=== PATIENT | female | born 1970 | race Caucasian/White ===

== ENCOUNTER 2016-07-07 01:30 | Emergency (ER) | payer OTHER ==
[~2016-07-07] VITALS: Ht 154.9 cm; Wt 61.2 kg
--- NOTE | ~2016-07-07 | EKG ---
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 : 1970 Requested By: Kalyan Marie Order Number: [id number] MD: Mack Chávez Measurements Intervals [place] Rate: 103 P: 28 [place]: 157 QRS: -22 QRSD: 112 T: 12 QT: 355 QTc: 465 Interpretive Statements Sinus tachycardia Poor R-wave progression Compared to ECG 04/30/2016 06:41:27 Sinus rhythm no longer present T-wave abnormality no longer present Electronically Signed On 07-07-2016 8:24:19 [employer] by Mack Chávez [email or web address] <ELECTRONICALLY SIGNED> By: Mack Chávez MD, [facility] 07/07/16 0824 3 3 Mack Chávez MD, [facility] /EPI
[~2016-07-07 01:30] MED LIST: ALBUTEROL INHAL17 GM IH; AUGMENTIN 875875 MG PO; BISOPROLOL FUM2.5 MG PO; CORTISPORIN OTI10 ML OT; CYMBALTA20 MG PO; DEPRESSION MED; FLEXERIL PO; HTN MED; IBUPROFEN 600600 M1 PO; KEFLEX500 MG PO; LEXAPRO20 MG PO; LIPITOR; LORTABELXR PO; MAALOX MAXIMUM355 ML PO; NAPROSYN500 MG PO; NORCO 5-325 TA1 EACH PO; PHENERGAN 25 MG25 M1 PO; PREDNISONE 20 M20 MG PO; PREDNISONE50 MG PO; PROMETHAZINE/C118 ML PO; PROTONIX40 MG PO; REGLAN 10 MG TA10 MG PO; ROBITUSSIN NIG118 ML PO; SYNTHROID; TESSALON PERLE100 MG PO; XANAX 0.25 MG0.25 MG PO; XANAX 0.5 MG0.5 MG PO; ZOFRAN ODT4 MG PO
[2016-07-07] MEDS ORDERED: LEVOTHYROXINE0.05 MG PO (01:55)
[2016-07-07] MEDS ORDERED: TRAZODONE HCL50 MG PO (01:55)
[2016-07-07] MEDS ORDERED: FETZIMA80 MG PO (01:56)
[2016-07-07 02:13] LABS: ANION GAP 10 mmol/L (7-16); BUN 28 mg/dL (7-18); CALCIUM 9.2 mg/dL (8.5-10.1); CHLORIDE 101 mmol/L (98-107); CO2 27 mmol/L (21-32); CREATININE 1.2 mg/dL (0.6-1.3); GLUCOSE 97 mg/dL (70-99); SODIUM 138 mmol/L (136-145)
[2016-07-07 02:20] LABS: APTT 20.8 Seconds (24.5-32.8)
[2016-07-07 02:25] LABS: ALBUMIN 4.1 g/dL (3.4-5.0); ALKALINE PHOSPHATASE 142 U/L (46-116); MAGNESIUM 1.8 mg/dL (1.8-2.4); SGOT 30 U/L (15-37); SGPT 48 U/L (30-65); TOTAL BILIRUBIN 0.8 mg/dL (<0.1-1.0); TOTAL PROTEIN 7.8 g/dL (6.4-8.2); TROPONIN-I < 0.04 ng/mL (<0.04-0.07)
[2016-07-07 02:28] LABS: CK-MB MASS 0.3 ng/mL (<0.5-3.6); NT-PRO BRAIN NAT PEPTIDE 28 pg/mL (<300)
[2016-07-07] MEDS ORDERED: NAPROSYN500 MG PO (02:43)
[2016-07-07] MEDS ORDERED: TRAMADOL 50 MG50 MG PO (02:43)
[2016-07-07] MEDS ORDERED: ROBAXIN500 MG PO (02:43)
[2016-07-07 02:58] LABS: ABSOLUTE NEUTROPHILS 2.6 thou/uL (1.4-8.2); BASOPHILS 1.4 % (0.0-2.0); EOSINOPHILS 2.7 % (0.0-3.0); HEMATOCRIT 43.5 % (37.0-47.0); LYMPHOCYTES 43.6 % (24.0-44.0); MCH 32.4 pg (26.0-34.0); MCHC 34.5 % (28.0-37.0); MCV 93.9 fL (80.0-100.0); MONOCYTES 10.8 % (1.0-8.0); POLYS 41.5 % (36.0-66.0); RBC 4.63 mil/uL (4.20-5.00); RDW 13.9 % (10.5-14.5); WBC 6.4 thou/uL (4.0-11.0)
[2016-07-07 03:08] LABS: MANUAL DIFF NO
[2016-07-07 03:43] VITALS: BP 134/92
[2016-07-07 05:05] LABS: PLATELET COUNT 218 thou/uL (150-400)
== END 2016-07-07 03:45 | disposition home or self-care (01) ==
LOC: ER 01:30
PROVIDERS: Emergency Medicine
DX: R07.89 Other chest pain (principal); M43.6 Torticollis; Z90.710 Acquired absence of both cervix and uterus; Z85.3 Personal history of malignant neoplasm of breast; Z90.49 Acquired absence of other specified parts of digestive tract; Z90.10 Acquired absence of unspecified breast and nipple

== ENCOUNTER 2016-07-13 10:08 | Emergency (ER) | payer OTHER ==
[~2016-07-13] VITALS: Ht 154.9 cm; Wt 69.0 kg
--- NOTE | ~2016-07-13 | EKG ---
[address] [place] [address] ELECTROCARDIOGRAM REPORT Name: ANDRIA YAN Room #: [facility] [id number] Admission: 07/13/16 Attend Phys: Discharge: Date of : [birth year] Report #: [id number] THIS REPORT FOR: //name// [facility] ED Test Date: 2016-07-13 Test Time: 10:17:48 Pat Name: ANDRIA YAN Department: Room: Gender: F Media Reconciliation Specialist: DANAY : 1970 Requested By: Carl Wheeler Order Number: [id number] MD: Mack Chávez Measurements Intervals [place] Rate: 94 P: 53 [place]: 169 QRS: -12 QRSD: 93 T: 37 QT: 385 QTc: 482 Interpretive Statements Sinus rhythm No significant abnormality Compared to ECG 07/07/2016 01:34:48 Sinus tachycardia no longer present Electronically Signed On 07-13-2016 13:45:08 SCOOP FILLER by Mack Chávez [email or web address] <ELECTRONICALLY SIGNED> By: Mack Chávez MD, [facility] 07/13/16 1345 1017 16 Mack Chávez MD, [facility] /EPI
[~2016-07-13 10:08] MED LIST changes: +FETZIMA80 MG PO; +LEVOTHYROXINE0.05 MG PO; +ROBAXIN500 MG PO; +TRAMADOL 50 MG50 MG PO; +TRAZODONE HCL50 MG PO
[2016-07-13] MEDS ORDERED: FETZIMA20 MG PO (10:10)
[2016-07-13] MEDS ORDERED: MICROZIDE12.5 MG PO (10:23)
[2016-07-13 12:31] LABS: ABSOLUTE NEUTROPHILS 4.8 thou/uL (1.4-8.2); BASOPHILS 0.6 % (0.0-2.0); EOSINOPHILS 0.4 % (0.0-3.0); HEMATOCRIT 46.5 % (37.0-47.0); HEMOGLOBIN 15.8 gm/dL (12.0-15.0); LYMPHOCYTES 29.6 % (24.0-44.0); MCH 31.9 pg (26.0-34.0); MCHC 34.1 % (28.0-37.0); MCV 93.6 fL (80.0-100.0); MONOCYTES 7.8 % (1.0-8.0); PLATELET COUNT 274 thou/uL (150-400); POLYS 61.6 % (36.0-66.0); RBC 4.96 mil/uL (4.20-5.00); RDW 14.1 % (10.5-14.5); WBC 7.8 thou/uL (4.0-11.0)
[2016-07-13 12:33] LABS: MANUAL DIFF NO
[2016-07-13 12:38] LABS: ANION GAP 13 mmol/L (7-16); BUN 22 mg/dL (7-18); CALCIUM 9.8 mg/dL (8.5-10.1); CHLORIDE 105 mmol/L (98-107); CO2 22 mmol/L (21-32); GLUCOSE 105 mg/dL (70-99); POTASSIUM 4.5 mmol/L (3.5-5.1); SODIUM 140 mmol/L (136-145)
[2016-07-13 12:48] LABS: ALBUMIN 4.5 g/dL (3.4-5.0); ALKALINE PHOSPHATASE 112 U/L (46-116); MAGNESIUM 1.7 mg/dL (1.8-2.4); SGOT 21 U/L (15-37); SGPT 34 U/L (30-65); TOTAL PROTEIN 8.2 g/dL (6.4-8.2); TROPONIN-I < 0.04 ng/mL (<0.04-0.07)
[2016-07-13] MEDS ORDERED: CARAFATE 1 GM TA1 G1 PO (12:59)
[2016-07-13] MEDS ORDERED: PANTOPRAZOLE SO40 M1 PO (12:59)
[2016-07-13] MEDS ORDERED: PHENERGAN 25 MG25 M1 PO (12:59)
[2016-07-13 13:22] VITALS: BP 123/82
== END 2016-07-13 13:25 | disposition home or self-care (01) ==
LOC: ER 10:08
PROVIDERS: Emergency Medicine
DX: R10.13 Epigastric pain (principal); Z90.710 Acquired absence of both cervix and uterus; Z90.13 Acquired absence of bilateral breasts and nipples; Z90.49 Acquired absence of other specified parts of digestive tract

== ENCOUNTER 2016-12-01 00:56 | Emergency (ER) | payer OTHER ==
[~2016-12-01] VITALS: Ht 154.9 cm; Wt 64.9 kg
[~2016-12-01 00:56] MED LIST changes: +CARAFATE 1 GM TA1 G1 PO; +FETZIMA20 MG PO; +MICROZIDE12.5 MG PO; +PANTOPRAZOLE SO40 M1 PO
[2016-12-01] MEDS ORDERED: BACTRIM DS TAB1 EACH PO (01:08)
[2016-12-01] MEDS ORDERED: SENOKOT-S1 TA1 PO (03:50)
[2016-12-01] MEDS ORDERED: NORCO 5-325 TA1 EACH PO (03:50)
[2016-12-01] MEDS ORDERED: ZOFRAN4 MG PO (03:50)
[2016-12-01 04:13] VITALS: BP 127/74
[2016-12-01 04:19] LABS: URINE BILIRUBIN NEGATIVE (Negative); URINE BLOOD 3+ (Negative); URINE COLOR YELLOW; URINE GLUCOSE-RANDOM* NEGATIVE (Negative); URINE KETONES NEGATIVE (Negative); URINE LEUKOCYTES-REFLEX 3+ (Negative); URINE PROTEIN (DIPSTICK) TRACE (Negative); URINE SPECIFIC GRAVITY <= 1.005 (1.003-1.035); URINE UROBILINOGEN 0.2 E.U./dl (0.2-1.0)
[2016-12-01 04:24] LABS: SQUAMOUS 4-10 Moderate /LPF (0-3)
[2016-12-01 04:25] LABS: CASTS None Seen /LPF (None Seen); CRYSTALS None Seen /LPF (None Seen); TRANSITIONAL EPITHEL CELL 0-3 Few /LPF (None Seen); URINE RBC 0-2 Rare /HPF (0-2); URINE WBC-REFLEX 6-15 Few /HPF (0-5)
== END 2016-12-01 03:51 | disposition home or self-care (01) ==
LOC: ER 00:56
PROVIDERS: Emergency Medicine
DX: N76.2 Acute vulvitis (principal); F10.99 Alcohol use, unspecified with unspecified alcohol-induced disorder; Z90.710 Acquired absence of both cervix and uterus; Z90.49 Acquired absence of other specified parts of digestive tract; Z98.890 Other specified postprocedural states; Z85.3 Personal history of malignant neoplasm of breast

== ENCOUNTER 2017-03-23 18:31 | Emergency (ER) | payer OTHER ==
[~2017-03-23] VITALS: Ht 157.5 cm; Wt 60.8 kg
[~2017-03-23 18:31] MED LIST changes: +BACTRIM DS TAB1 EACH PO; +SENOKOT-S1 TA1 PO; +ZOFRAN4 MG PO
[2017-03-23] MEDS ORDERED: PENICILLIN V P500 MG PO (19:55)
[2017-03-23] MEDS ORDERED: MOBIC7.5 MG PO (19:56)
[2017-03-23] MEDS ORDERED: NORCO 5-325 TA1 EACH PO (20:01)
[2017-03-23 20:05] VITALS: BP 122/82
== END 2017-03-23 20:07 | disposition home or self-care (01) ==
LOC: ER 18:31
DX: K08.89 Other specified disorders of teeth and supporting structures (principal); F10.99 Alcohol use, unspecified with unspecified alcohol-induced disorder; Z85.3 Personal history of malignant neoplasm of breast; Z90.710 Acquired absence of both cervix and uterus; Z90.49 Acquired absence of other specified parts of digestive tract

== ENCOUNTER 2017-05-11 06:40 | Emergency (ER) | payer OTHER ==
[~2017-05-11] VITALS: Ht 154.9 cm; Wt 61.2 kg
--- NOTE | ~2017-05-11 | EKG ---
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 Dismantler: carley : 1970 Requested By: Ralf Pina Order Number: [id number] MD: Mack Chávez Measurements Intervals [place] Rate: 72 P: 39 [place]: 167 QRS: -19 QRSD: 97 T: 12 QT: 409 QTc: 448 Interpretive Statements Sinus rhythm Borderline left axis deviation RSR' in V1 or V2, probably normal variant Compared to ECG 07/13/2016 10:17:48 RSR' in V1 or V2 now present Electronically Signed On 05-11-2017 8:24:21 GRAINING PRESS OPERATOR by Mack Chávez [email or web address] <ELECTRONICALLY SIGNED> By: Mack Chávez MD, [facility] 05/11/17 0824 1 1 Mack Chávez MD, [facility] /EPI
[~2017-05-11 06:40] MED LIST changes: +MOBIC7.5 MG PO; +PENICILLIN V P500 MG PO
[2017-05-11 07:24] LABS: HEMOGLOBIN 14.8 gm/dL (12.0-15.0); MCH 31.9 pg (26.0-34.0); MCHC 33.7 g/dL (28.0-37.0); MCV 94.6 fL (80.0-100.0); RBC 4.65 mil/uL (4.20-5.00); RDW 12.5 % (10.5-14.5); WBC 4.8 thou/uL (4.0-11.0)
[2017-05-11 08:12] LABS: ANION GAP 11 mmol/L (7-16); BUN 24 mg/dL (7-18); CALCIUM 9.4 mg/dL (8.5-10.1); CHLORIDE 104 mmol/L (98-107); CO2 23 mmol/L (21-32); GLUCOSE 104 mg/dL (74-106); SODIUM 138 mmol/L (136-145)
[2017-05-11 08:13] LABS: POTASSIUM 4.1 mmol/L (3.5-5.1)
[2017-05-11 08:21] LABS: ALKALINE PHOSPHATASE 94 U/L (46-116); SGOT 43 U/L (15-37); SGPT 41 U/L (30-65); TOTAL BILIRUBIN 0.8 mg/dL (<0.1-1.0); TOTAL PROTEIN 7.6 g/dL (6.4-8.2); TROPONIN-I < 0.04 ng/mL (<0.06)
[2017-05-11] MEDS ORDERED: DOXYCYCLINE 10100 MG PO (08:24)
[2017-05-11 08:45] VITALS: BP 124/82
== END 2017-05-11 08:47 | disposition home or self-care (01) ==
LOC: ER 06:40
PROVIDERS: Emergency Medicine
DX: L03.317 Cellulitis of buttock (principal); R05 Cough; Z90.710 Acquired absence of both cervix and uterus; Z90.49 Acquired absence of other specified parts of digestive tract; Z85.3 Personal history of malignant neoplasm of breast

== ENCOUNTER 2017-06-30 16:16 | Emergency (ER) | payer OTHER ==
[~2017-06-30] VITALS: Ht 154.9 cm; Wt 59.9 kg
[~2017-06-30 16:16] MED LIST changes: +DOXYCYCLINE 10100 MG PO
[2017-06-30] MEDS ORDERED: TUSSIONEX PENN115 ML PO (16:47)
[2017-06-30 17:00] VITALS: BP 142/98
== END 2017-06-30 17:08 | disposition home or self-care (01) ==
LOC: ER 16:16
DX: R06.9 Unspecified abnormalities of breathing (principal); Z90.710 Acquired absence of both cervix and uterus; Z90.49 Acquired absence of other specified parts of digestive tract

== ENCOUNTER 2017-09-25 10:21 | Emergency (ER) | payer OTHER ==
[~2017-09-25] VITALS: Ht 154.9 cm; Wt 60.8 kg
--- NOTE | ~2017-09-25 | EKG ---
[address] [address] ELECTROCARDIOGRAM REPORT Name: ANDRIA YAN Room #: [facility]P [facility]Marg[facility]itaMarg[facility]#: [id number] Admission: 09/25/17 Attend Phys: Discharge: 09/25/17 Date of : 66 Report #: [id number] THIS REPORT FOR: //name// [facility] ED Test Date: 2017-09-25 Test Time: 11:06:33 Pat Name: ANDRIA YAN Department: Room: Gender: F Shiatsu Therapist: [facility] : 1970 Requested By: Andres Raza Order Number: [id number] MD: Melo Reyes Measurements Intervals [place] Rate: 84 P: 36 [place]: 162 QRS: -17 QRSD: 97 T: 13 QT: 408 QTc: 483 Interpretive Statements Sinus rhythm Probable left atrial enlargement Borderline left axis deviation Low voltage, precordial leads RSR' in V1 or V2, probably normal variant Compared to ECG 05/11/2017 07:22:51 Low QRS voltage now present Electronically Signed On 09-26-2017 12:06:39 CDT by Melo Reyes [email or web address] <ELECTRONICALLY SIGNED> By: Melo Reyes MD 09/26/17 1206 1106 1106 Melo Reyes MD /EPI
[~2017-09-25 10:21] MED LIST changes: +TUSSIONEX PENN115 ML PO
[2017-09-25 11:17] LABS: ABSOLUTE NEUTROPHILS 3.5 thou/uL (1.4-8.2); BASOPHILS 0.9 % (0.0-2.0); EOSINOPHILS 1.6 % (0.0-3.0); HEMATOCRIT 41.6 % (37.0-47.0); HEMOGLOBIN 14.3 gm/dL (12.0-15.0); LYMPHOCYTES 23.3 % (24.0-44.0); MCH 32.8 pg (26.0-34.0); MCHC 34.3 g/dL (28.0-37.0); MCV 95.4 fL (80.0-100.0); MONOCYTES 7.3 % (1.0-8.0); PLATELET COUNT 230 thou/uL (150-400); POLYS 66.9 % (36.0-66.0); RBC 4.36 mil/uL (4.20-5.00); RDW 12.2 % (10.5-14.5); WBC 5.3 thou/uL (4.0-11.0)
[2017-09-25 11:27] LABS: CALCIUM 9.1 mg/dL (8.5-10.1); CREATININE 1.2 mg/dL (0.6-1.0); POTASSIUM 3.3 mmol/L (3.5-5.1)
[2017-09-25 11:35] LABS: ALBUMIN 3.8 g/dL (3.4-5.0); DIRECT BILIRUBIN 0.1 mg/dL (<0.1-0.3); TOTAL BILIRUBIN 0.7 mg/dL (<0.1-1.0); TOTAL PROTEIN 7.1 g/dL (6.4-8.2)
[2017-09-25 11:41] LABS: URINE BILIRUBIN NEGATIVE (Negative); URINE BLOOD NEGATIVE (Negative); URINE CLARITY CLEAR; URINE COLOR YELLOW; URINE GLUCOSE-RANDOM* NEGATIVE (Negative); URINE KETONES NEGATIVE (Negative); URINE LEUKOCYTES NEGATIVE (Negative); URINE NITRITE NEGATIVE (Negative); URINE PROTEIN (DIPSTICK) NEGATIVE (Negative); URINE SPECIFIC GRAVITY 1.025 (1.005-1.035); URINE UROBILINOGEN 0.2 E.U./dl (0.2-1.0)
[2017-09-25] MEDS ORDERED: ONDANSETRON HCL4 M2 PO (12:02)
[2017-09-25 12:38] VITALS: BP 132/95
== END 2017-09-25 12:41 | disposition home or self-care (01) ==
LOC: ER 10:21
PROVIDERS: Nurse Practitioner
DX: K52.9 Noninfective gastroenteritis and colitis, unspecified (principal); Z85.3 Personal history of malignant neoplasm of breast; Z90.49 Acquired absence of other specified parts of digestive tract; Z90.710 Acquired absence of both cervix and uterus

== ENCOUNTER 2018-01-15 23:55 | Emergency (ER) | payer OTHER ==
[~2018-01-15] VITALS: Ht 154.9 cm; Wt 60.8 kg
[~2018-01-15 23:55] MED LIST changes: +ONDANSETRON HCL4 M2 PO
[2018-01-16] MEDS ORDERED: PAXIL10 MG PO (00:11)
[2018-01-16] MEDS ORDERED: DOXYCYCLINE 10100 MG PO (00:12)
[2018-01-16] MEDS ORDERED: MAXZIDE-25 MG1 EACH PO (00:12)
[2018-01-16] MEDS ORDERED: TRIAMCINOLONE A80 G2 TOP (00:13)
[2018-01-16] MEDS ORDERED: ACTICIN 5% CREA60 G1 TOP (00:14)
[2018-01-16] MEDS ORDERED: EURAX60 GM TOP (02:05)
[2018-01-16 02:22] VITALS: BP 128/85
== END 2018-01-16 02:22 | disposition home or self-care (01) ==
LOC: ER 23:55
DX: B86 Scabies (principal); Z90.710 Acquired absence of both cervix and uterus; Z90.13 Acquired absence of bilateral breasts and nipples; Z98.890 Other specified postprocedural states; Z90.49 Acquired absence of other specified parts of digestive tract; Z85.3 Personal history of malignant neoplasm of breast

== ENCOUNTER 2020-04-12 08:47 | Emergency (ER) | payer OTHER ==
[~2020-04-12] VITALS: Ht 165.1 cm; Wt 57.1 kg
[~2020-04-12 08:47] MED LIST changes: +ACTICIN 5% CREA60 G1 TOP; +EURAX60 GM TOP; +MAXZIDE-25 MG1 EACH PO; +PAXIL10 MG PO; +TRIAMCINOLONE A80 G2 TOP
[2020-04-12 08:53] VITALS: BP 138/78
[2020-04-12] MEDS ORDERED: LORAZEPAM 0.50.5 MG PO (08:57)
== END 2020-04-12 09:35 | disposition home or self-care (01) ==
LOC: ER 08:47
DX: R06.02 Shortness of breath (principal); T54.91XA Toxic effect of unspecified corrosive substance, accidental (unintentional), initial encounter; Z90.710 Acquired absence of both cervix and uterus; Z90.49 Acquired absence of other specified parts of digestive tract; Z79.899 Other long term (current) drug therapy; Y92.89 Other specified places as the place of occurrence of the external cause

== ENCOUNTER 2021-04-18 06:01 | Emergency (ER) | payer BC ==
[~2021-04-18] VITALS: Ht 157.5 cm; Wt 59.9 kg
[~2021-04-18 06:01] MED LIST changes: +LORAZEPAM 0.50.5 MG PO
[2021-04-18 06:40] LABS: ABSOLUTE NEUTROPHILS 2.1 thou/uL (1.4-8.2); BASOPHILS 0.5 % (0.0-2.0); EOSINOPHILS 2.8 % (0.0-3.0); HEMATOCRIT 41.8 % (37.0-47.0); HEMOGLOBIN 14.1 gm/dL (12.0-15.0); LYMPHOCYTES 37.6 % (24.0-44.0); MCH 31.8 pg (26.0-34.0); MCHC 33.6 g/dL (28.0-37.0); MCV 94.6 fL (80.0-100.0); MONOCYTES 8.2 % (1.0-8.0); PLATELET COUNT 239 thou/uL (150-400); POLYS 50.9 % (36.0-66.0); RBC 4.43 mil/uL (4.20-5.00); RDW 12.4 % (10.5-14.5); WBC 4.1 thou/uL (4.0-11.0)
[2021-04-18 06:46] LABS: CALCIUM 8.6 mg/dL (8.5-10.1)
[2021-04-18 07:01] LABS: ALBUMIN 3.2 g/dL (3.4-5.0); TOTAL BILIRUBIN 0.3 mg/dL (0.2-1.0); TOTAL PROTEIN 6.1 g/dL (6.4-8.2)
[2021-04-18 07:48] LABS: URINE BILIRUBIN NEGATIVE (Negative); URINE BLOOD NEGATIVE (Negative); URINE CLARITY CLEAR; URINE COLOR YELLOW; URINE GLUCOSE-RANDOM* NEGATIVE (Negative); URINE KETONES NEGATIVE (Negative); URINE LEUKOCYTES-REFLEX 3+ (Negative); URINE NITRITE-REFLEX NEGATIVE (Negative); URINE PROTEIN (DIPSTICK) NEGATIVE (Negative); URINE SPECIFIC GRAVITY 1.025 (1.005-1.035); URINE UROBILINOGEN 0.2 E.U./dl (0.2-1.0)
[2021-04-18 08:22] LABS: SQUAMOUS 4-10 Moderate /LPF (0-3)
[2021-04-18 08:23] LABS: CASTS None Seen /LPF (None Seen); CRYSTALS None Seen /LPF (None Seen); URINE RBC None Seen /HPF (NONE SEEN)
[2021-04-18] MEDS ORDERED: ZOFRAN ODT4 MG PO (08:26)
[2021-04-18] MEDS ORDERED: AUGMENTIN 875-1 EACH PO (08:28)
[2021-04-18 08:38] VITALS: BP 140/94
== END 2021-04-18 08:40 | disposition home or self-care (01) ==
LOC: ER 06:01
PROVIDERS: Emergency Medicine
DX: N39.0 Urinary tract infection, site not specified (principal); Z20.822 Contact with and (suspected) exposure to COVID-19; R05.9 Cough, unspecified; R11.0 Nausea; B34.9 Viral infection, unspecified; Z90.710 Acquired absence of both cervix and uterus; Z98.890 Other specified postprocedural states; Z90.13 Acquired absence of bilateral breasts and nipples; Z90.49 Acquired absence of other specified parts of digestive tract; Z79.891 Long term (current) use of opiate analgesic; Z79.899 Other long term (current) drug therapy